=== PATIENT | female | born 1960 | race Caucasian/White ===

== ENCOUNTER → 2023-03-17 13:49 | Outpatient (POV) | payer BC, SELFPAY | PROVIDERS: Visit Provider Specialist/Technologist | DX: Z00.00 Encounter for general adult medical examination without abnormal findings (principal) ==

== ENCOUNTER → 2023-04-08 10:04 | Outpatient (CLI) | payer BC, SELFPAY ==
[2023-04-08 10:52] LABS: Blood Urea Nitrogen 10 mg/dl (7-17); Estimated Glomerular Filt Rate 73 ml/min (>60); GFR (African American) 88 ML/MIN (>60)
--- NOTE | 2023-04-08 15:11 | MR_ITS ---
FINAL REPORT CLINICAL HISTORY: hearing loss OUT OF RIGHT EAR FINDINGS: Multiplanar MR imaging of the brain was performed without and with contrast, with attention to the posterior fossa, cerebellopontine angles and internal auditory canals. There is no evidence of intracranial hemorrhage or mass. The ventricular size is within normal limits. There is no evidence of shift of the midline structures. No area of abnormal restricted diffusion is identified. Normal major vessel vascular flow voids are seen. No abnormal contrast enhancement is identified within the brain. No mass or abnormal contrast enhancement is seen within the cerebellopontine angles or internal auditory canals. No focal abnormality is identified of the temporal bones. 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 IMPRESSION: No acute intracranial abnormality identified. No mass or abnormal contrast enhancement identified within the cerebellopontine angles or internal auditory canals. Reviewed, Interpreted and Dictated by Francisco Collazo III, MD Transcribed by April Salazar Authenticated and [facility]
== END ==
PROVIDERS: PCP Nurse Practitioner Family; Visit Provider Nurse Practitioner
DX: H65.06 Acute serous otitis media, recurrent, bilateral (principal); H68.103 Unspecified obstruction of Eustachian tube, bilateral; H74.03 Tympanosclerosis, bilateral; H93.13 Tinnitus, bilateral
CPT/HCPCS: 36415; 70553; 82565; 84520; A9576

== ENCOUNTER 2023-08-18 13:59 | Outpatient (CLI) | payer BC, SELFPAY ==
--- NOTE | 2023-08-18 14:06 | XR_ITS ---
FINAL REPORT CLINICAL HISTORY: lt knee pain Patient states arthritis, no known injury. weightbearing views. FINDINGS: Left knee Three views were obtained. There is no acute fracture or dislocation. There are mild degenerative changes of the medial and patellofemoral compartments. No soft tissue abnormality is identified. IMPRESSION: Mild degenerative changes. Reviewed, Interpreted and Dictated by Francisco Collazo III, MD Transcribed by Debby Reeder Authenticated and [facility]
== END 2023-08-18 23:59 ==
LOC: RAD 14:01
PROVIDERS: PCP Nurse Practitioner Family; Visit Provider Orthopaedic Surgery
DX: M25.562 Pain in left knee (principal)
CPT/HCPCS: 73562

== ENCOUNTER 2023-08-26 07:50 | Outpatient (CLI) | payer BC, SELFPAY ==
--- NOTE | 2023-08-26 | CA_ITS ---
APPROVED REPORT EXAM: Comprehensive 2D, Doppler, and color-flow Echocardiogram Trimming Machine Operator: Chery Lyles, LAY, RVS Ht: 5 ft 2 in Wt: 162lbs BSA: 1.75 BP: 135/89 mmHg Indications: FAMILY Hx HYPERTROPHIC CM 2D Dimensions Left Atrium 3.48 cm LA Volume 70.00 mL LA Volume Index 39.10 mL/m2 (M/F) 16-34 M-Mode Dimensions RVDd 2.09 cm (0.9-2.6) LA Diam 4.27 cm (1.9-4.0) LVDd 4.78 cm (3.5-5.7) LVDs 3.37 cm (3.5-5.7) IVSd 0.87 cm (0.6-1.1) PWd 0.91 cm (0.6-1.1) EF (Teich) 56.40% EPSs 0.19 cm FS 29.50% EDV (Teich) 106.50 mL TAPSE 1.51 (<1.7) ESV (Teich) 46.40 mL LV Diastology E Decel Time 217 (160-240 msec) E/A Ratio 1.06 MED A' 10.00 cm/s LAT A' 9.30 cm/s Aortic Valve LOAN Index 1.09 cm2/m2 AoV Peak Jori. 133.0 (50-130 cm/s) AO Peak GR. 7.10 mmHg AO Mean GR. 3.60 (<5 mmHg) AO VTI 29.8 (18-25 cm) LOAN (VTI) 1.96 (2.5-4.5 cm2) Mitral Valve MV A Velocity 69.0 (40-130 cm/s) E/A Ratio 1.06 Pulmonary Valve PV Peak Velocity 72.0 (50-150 cm/s) Left Ventricle The left ventricle is normal size. The left ventricular systolic function is normal. The left ventricular ejection fraction is within the normal range. Proximal septal thickening is noted (max LV wall thickness 1.2 cm). No evidence of LVOT obstruction at rest. There is normal LV segmental wall motion. The left ventricular diastolic function is normal. LVEF is 60%. Right Ventricle The right ventricle is normal size. The right ventricular systolic function is normal. Atria The left atrium size is normal. The right atrium size is normal. There is no Doppler evidence of interatrial shunt. The aortic valve is mildly thickened. Aortic Valve There is no aortic valvular stenosis. No aortic regurgitation is present. Mitral Valve The mitral valve is normal in structure. No evidence of systolic anterior motion. No evidence of mitral valve stenosis. Trace mitral regurgitation. Tricuspid Valve The tricuspid valve leaflets are thin and pliable. Trace tricuspid regurgitation. There is insufficient TR jet to estimate RVSP. Pulmonic Valve The pulmonary valve is normal in structure. Trace pulmonic regurgitation. Great Vessels The aortic root is normal in size. The ascending aorta is normal in size. IVC is normal in size and collapses >50% with inspiration. Pericardium There is no pericardial effusion. Other Information Study Quality: Fair Conclusion Normal biventricular systolic function. No significant valvular stenosis or regurgitation. No evidence of systolic anterior motion of the mitral valve. In the setting of known family history of HCM, the study findings are not suggestive of HCM. Electronically signed by : Shelly Antonio MD 08/29/2023 22:11:51
== END 2023-08-26 23:59 ==
LOC: RT 07:50
PROVIDERS: PCP Nurse Practitioner Family; Visit Provider Nurse Practitioner Family
DX: Z82.49 Family history of ischemic heart disease and other diseases of the circulatory system (principal)
CPT/HCPCS: 93306

== ENCOUNTER 2023-10-11 15:41 | Outpatient (POV) | payer BC, SELFPAY | END 2023-10-11 23:59 | disposition home or self-care (01) | LOC: SC 15:42 | PROVIDERS: PCP Nurse Practitioner Family; Visit Provider Dermatology | DX: Z00.00 Encounter for general adult medical examination without abnormal findings (principal) ==

== ENCOUNTER 2023-10-14 07:57 | Outpatient (CLI) | payer BC, SELFPAY ==
--- NOTE | 2023-10-14 08:00 | MM_ITS ---
PROCEDURE INFORMATION: Exam: MG Bilateral Screening 3D Mammography Exam date and time: 10/14/2023 7:52 AM Age: 63 years old Clinical indication: Screening mammogram TECHNIQUE: Imaging protocol: Bilateral Screening tomosynthesis and 2D mammography including computer-aided detection (CAD) when performed. COMPARISON: 1. MG SCREENING JONATHAN MAMMO AND MARIPOSA 05/14/2022 10:31 AM 2. MG MAMMOGRAM SCREENING BILATERAL W OMAR 03/20/2021 7:30 AM FINDINGS: MAMMOGRAPHY: Breast composition: There are scattered areas of fibroglandular density. Mass: Stable benign-appearing subcentimeter nodules are present in the right breast. No new or morphologically suspicious nodule has developed to suggest malignancy. Architectural distortion: No new or suspicious architectural distortion. Calcifications: No new or suspicious calcifications are present Asymmetric density: No new or suspicious asymmetric density is present Skin thickening: None. Axillary adenopathy: None. IMPRESSION: No mammographic evidence of malignancy. Recommend annual screening mammography unless otherwise clinically indicated. ASSESSMENT: BI-RADS category 2: Benign.
== END 2023-10-14 23:59 | disposition home or self-care (01) ==
LOC: RAD 07:57
PROVIDERS: PCP Nurse Practitioner Family; Visit Provider Nurse Practitioner Family
DX: Z12.31 Encounter for screening mammogram for malignant neoplasm of breast (principal)
CPT/HCPCS: 77063; 77067

== ENCOUNTER 2023-10-24 08:57 | Outpatient (CLI) | payer BC, SELFPAY ==
--- NOTE | 2023-10-24 09:10 | XR_ITS ---
FINAL REPORT CLINICAL HISTORY: SCREENING FINDINGS: Using L1-4, the bone mineral density of the spine is 0.873 g/cm2, corresponding to T-score of -1.6. Using the left hip, the bone mineral density of the femoral neck is 0.678 g/cm2, corresponding to a T-score of -1.5. Using the right hip: The bone mineral density of the femoral neck is 0.702 g/cm2, corresponding to a T-score of -1.3. FRAX 10 year fracture risk is 8.3% for a hip fracture and 0.7% for a major osteoporotic fracture. IMPRESSION: Low bone mineral density of the lumbar spine and hips. NOTE: T-score: Standard deviation compared with peak bone mass of young adult mean. *Following the recommendations of the International Society of Bone densitometry, classification of hip BMD is based on the lower of two T-scores; total hip or femoral neck. Reviewed, Interpreted and Dictated by Raheem Sanchez MD Transcribed by Maya Birch Authenticated and . [facility]
== END 2023-10-24 23:59 | disposition home or self-care (01) ==
LOC: RAD 08:58
PROVIDERS: PCP Nurse Practitioner Family; Visit Provider Nurse Practitioner Family
DX: Z78.0 Asymptomatic menopausal state (principal)
CPT/HCPCS: 77080

== ENCOUNTER 2024-08-02 08:04 | Outpatient (CLI) | payer OTHER, SELFPAY ==
[2024-08-02 08:55] LABS: Anion Gap 5.8 mEq/L (5-15); Bilirubin,Total 0.5 mg/dl (0.2-1.3); Blood Urea Nitrogen 14 mg/dl (7-17); Calcium 9.1 mg/dl (8.4-10.2); Carbon Dioxide 28 mmol/L (22.0-30.0); Chloride 108 mmol/L (98-107); Estimated Glomerular Filt Rate 46 ml/min (>60); GFR (African American) 55 ML/MIN (>60); Glucose 106 mg/dl (74-100); Potassium 4.8 mmoL/L (3.5-5.1); Sodium 137 mmol/L (136-145)
[2024-08-02 08:56] LABS: Alanine Aminotransferase 23 U/L (12-78); Albumin Level 3.9 g/dl (3.5-5.0); Albumin/Globulin Ratio 1.9 (1.1-1.8); Alkaline Phosphatase 105 U/L (38-126); Aspartate Amino Transferase 24 U/L (14-36); Chol/HDL Ratio 3.3 (1-3.5); Cholesterol 219 mg/dl (140-200); Globulin 2.1 g/dL (1.3-3.2); HDL Cholesterol 66 mg/dl (40-60); Triglycerides 149 mg/dl (30-150); VLDL Cholesterol 30 mg/dL (0-40)
[2024-08-02 09:05] LABS: Basophils % 0.5 % (0.1-2.0); Eosinophils # 0.1 K/mm3 (0.0-0.4); Eosinophils % 1.2 % (0.1-12.0); Hematocrit 37.7 % (37.0-47.0); Hemoglobin 12.1 g/dL (12.2-16.2); Lymphocytes # 2.5 K/mm3 (0.7-4.5); Lymphocytes % 42.2 % (10-50); Mean Corpuscular HGB Conc 32.1 g/dL (31.8-35.4); Mean Corpuscular Hemoglobin 28.7 pg (27.0-31.2); Mean Corpuscular Volume 89.3 fl (81-99); Mean Platelet Volume 10.6 fl (7.4-10.4); Monocytes # 0.4 K/mm3 (0.1-1.0); Neutrophils # 2.9 K/mm3 (1.8-7.8); Neutrophils % 48.9 % (37.0-80.0); Platelet Count 273 K/mm3 (142-424); Red Blood Count 4.22 M/mm3 (4.20-5.40); Red Cell Distribution Width 14.4 % (11.5-17.5); White Blood Count 5.9 K/mm3 (4.8-10.8)
[2024-08-02 09:06] LABS: Direct LDL Cholesterol 101.26 mg/dL (100-129)
== END 2024-08-02 23:59 | disposition home or self-care (01) ==
LOC: LAB 08:09
PROVIDERS: PCP Nurse Practitioner Family; Visit Provider Nurse Practitioner Family
DX: Z00.00 Encounter for general adult medical examination without abnormal findings (principal); I10 Essential (primary) hypertension
CPT/HCPCS: 36415; 80053; 80061; 85025

== ENCOUNTER 2024-09-06 14:24 | Outpatient (CLI) | payer OTHER, SELFPAY ==
--- NOTE | 2024-09-06 14:27 | XR_ITS ---
FINAL REPORT CLINICAL HISTORY: lt knee pain f/u post knee injection COMPARISON: 08/18/2023 FINDINGS: Three views of the left knee were obtained. There is no acute fracture or dislocation. There is moderate tricompartmental degenerative change, mildly worse since the prior exam. There is no joint effusion. IMPRESSION: Moderate degenerative changes, slightly worse since prior. Reviewed, Interpreted and Dictated by Sary Oneal MD Transcribed by Joann Coleman Authenticated and [facility]
== END 2024-09-06 23:59 | disposition home or self-care (01) ==
LOC: RAD 14:25
PROVIDERS: PCP Nurse Practitioner Family; Visit Provider Physician Assistant
DX: M25.562 Pain in left knee (principal)
CPT/HCPCS: 73562

== ENCOUNTER 2024-10-24 14:26 | Outpatient (CLI) | payer OTHER, SELFPAY ==
--- OUTSIDE RECORDS SUMMARY | 2024-10-24 14:28 | XMS_ITS | Data Portability ---
Author Organization [facility] MIRIAN Pandya MEAD CLOSED Address [address] [place] [address] Assessment No assessment recorded. Plan of Treatment Reminders Order Date Submit Date Provider Last Modified By Organization Details Last Modified Time Details Appointments None record ed. Lab None record ed. Referral None record ed. Procedures None record ed. Surgeries None record ed. Imaging None record ed. Medication Orders None record ed. Patient TargetsNo targets recorded. Patient InstructionsNo instructions recorded. Reason for Referral None Reported. Procedures Surgical History Date Name Laterality Status Provider Name and Address Organization Details Recorded Time 3 Tympanogram completed LEONA MATHEWS, AUD [address] [place], [address], [facility] 05/06/2023 08:49:12 3 Audiogram completed LEONA MATHEWS AUD [address] [place], [address], [facility] 05/06/2023 08:49:11 7 Tonsillectomy completed Caty Coleman [facility] 05/06/2023 08:56:29 Imaging Results None recorded. Procedure Notes None recorded. Medical Equipment None Reported. Allergies No known drug allergies Medications Name Sig Start Date Stop Date Status Note LastModified by Organization Details LastModified Time status covid-19/fl u a&b antigen tst TEST DIRECTED TODAY active Not Available Not Available No t Available valacyclovi r 1 gram tablet active Not Available Not Available Not Available omeprazole 40 mg capsule,del ayed release active Not Available Not Available Not Available citalopram 20 mg tablet active Not Available Not Available Not Available lisinopril 10 mg tablet active Not Available Not Available Not Available montelukast 10 mg tablet active Not Available Not Available Not Available azelastine 137 mcg (0.1 %) nasal spray USE 2 SPRAYS IN EACH NOSTRIL TWICE DAILY 05/06 completed Not Available Not Available Not Available methylpredn isolone 4 mg tablets in a dose pack FOLLOW PACKAGE DIRECTION S active Not Available Not Available No t Available fluticasone propionate 50 mcg/actuati on nasal spray,suspe nsion 05/06 completed Not Available Not Available Not Available amoxicillin 875 mg-potassiu m clavulanate 125 mg tablet 05/06 completed Not Available Not Available Not Available meloxicam active Not Available Not Yue ilable Not Available dicyclomine active Not Available Not A vailable Not Available levocetiriz ine 5 mg tablet TAKE 1 TABLET BY MOUTH DAILY 05/06 completed Not Available Not Available Not Available Vitals None Recorded Social History None recorded. Functional Status Question Answer Note LastModified by Organizat ion Details LastModified Time What is your level of alcohol consumption? Occasional [email or web address] Information not available 05/06/2023 Mental Status None recorded. Family History Relationship Description Onset Age of this Age Resolved Age Notes LastModified by Organization Details LastModified Time Father Hearing loss [email or web address] Not avai lable 05/06/2023 08:55:30 Father Hypertensive disorder [email or web address] Not available 2022 08:55:53 Father Diabetes mellitus [email or web address] Not available 2022 08:56:01 Mother Hearing loss [email or web address] Not avai lable 05/06/2023 08:55:30 Mother Hypertensive disorder [email or web address] Not available 2022 08:55:52 Medical History Condition Response Dizziness N Hearing Loss Y Arthritis Y Head Injury/Concussion N Acid Reflux (GERD) Y Cancer N Stroke N Liver Disease N Kidney Disease N Allergies/Hayfever Y Alzheimer's N Pressure in ears N Diabetes N Noise exposure (guns, equipment etc) N Tinnitus Y Heart Disease N Chronic Ear Infections Y Hypertension Y Gynecological HistoryNo gynecological history recorded. Obstetrics History GPAL:G 0 P 0 0 0 0 Past Encounters Encounter ID Performer Location Encounter Start Date Encounter Closed Date Diagnosis/Indication Diagnosis SNOMED-CT Code Diagnosis ICD10 Code Diagnosis Note [id number] LEONA MATHEWS, [facility]UD [place] [facility] [address] [place] [address] 05/06/2023 08:30:38 05/06/2023 08:57:39 Mixed conductive and sensorineural hearing loss of right ear [id number] 9105 H90.A31 Bilateral tinnitus 38976 11647 102 H93.13 R>L [id number] MD [facility] CHICAS [facility] [address] [place] [id number] 05/06/2023 07:48:32 05/06/2023 10:14:44 Mixed conductive and sensorineural hearing loss of right ear [id number] 9105 H90.A31 Bilateral tinnitus 41749 29588 102 H93.13 R>L Sensorineu ral hearing loss in left ear [id number] 9109 H90.A22 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 1 H74.03 [id number] [facility] [address] [place] [id number] 07/14/2023 10:49:19 07/14/2023 11:38:29 [id number] [facility] [address] [place] [id number] 08/08/2023 09:08:52 08/08/2023 11:08:52 [id number] [facility] [address] [place] [id number] 08/29/2023 12:54:32 08/29/2023 13:38:51 [id number] J[facility]SELIN [facility] [place] [facility] [address] [place] [id number] 09/23/2023 14:49:08 09/23/2023 15:13:53 [id number] [facility]SELIN [facility] [place] [facility] [address] 7 01/19/2024 09:19:19 05/11/2024 14:38:52 [id number] LEONA MATHEWS, AUD [place] [facility] [address] [place] [address] 05/10/2024 09:24:34 05/10/2024 12:16:34 Health Concerns Section Related Observation LastModified by Organization Detai ls LastModified Time None Recorded Concern Status LastModified by Organization Details LastModified Time None Recorded Advance Directives Directive None Recorded Payers Insurance Date Sequence Insurance Name Policy Number Policy Sims Covered Member ID Sims Member ID Guarantor Name 05/07/2024 1 [place] [id number] Ale Garvin [id number] Ale Garvin 05/07/2024 2 [place] ON [place] BEFORE 06/06/2024 - [employer]AN (PPO) [id number] Ale Garvin [id number] Ale Garvin OBGyn Episode No OBEpisode recorded.
--- NOTE | 2024-10-24 14:30 | MM_ITS ---
PROCEDURE INFORMATION: Exam: MG Bilateral Screening 3D Mammography Exam date and time: 10/24/2024 2:58 PM Age: 64 years old Clinical indication: Screening. No family history of breast cancer. TECHNIQUE: Imaging protocol: Bilateral Screening tomosynthesis and 2D mammography including computer-aided detection (CAD) when performed. COMPARISON: 1. MG MM DIG SCREENING MAMM BI W/CAD 10/14/2023 7:52 AM 2. MG SCREENING JONATHAN MAMMO AND MARIPOSA 05/14/2022 10:31 AM 3. MG MAMMOGRAM SCREENING BILATERAL W OMAR 03/20/2021 7:30 AM FINDINGS: MAMMOGRAPHY: Breast composition: There are scattered areas of fibroglandular density. Mass: No suspicious mass. Architectural distortion: None. Calcifications: No suspicious calcifications. Asymmetric density: None. Skin thickening: None. Axillary adenopathy: None. IMPRESSION: No mammographic evidence of malignancy. Annual screening is recommended unless otherwise clinically indicated. ASSESSMENT: BI-RADS Category 1: Negative.
== END 2024-10-24 23:59 | disposition home or self-care (01) ==
LOC: RAD 14:26
PROVIDERS: PCP Nurse Practitioner Family; Visit Provider Nurse Practitioner Family
DX: Z12.31 Encounter for screening mammogram for malignant neoplasm of breast (principal); R92.323 Mammographic fibroglandular density, bilateral breasts
CPT/HCPCS: 77063; 77067

== ENCOUNTER 2025-03-20 08:52 | Outpatient (CLI) | payer OTHER, SELFPAY ==
--- OUTSIDE RECORDS SUMMARY | 2024-09-08 17:30 | XMS_ITS ---
Author Organization [facility] Address [address] [place] [address] Care Team Providers Care Business Performance Analyst Name Role Phone VirgieKarla Primary Care Provider KARLA GARVINSEY Unavailable Unavaila ble Migration, Provider Unavailable Unavailable Allergies Allergen (clinical drug ingredient) Drug/Non Drug Allergy documented on EMR Reaction Allergy Type Onset Date Status metronidazole Metrogel Unknown Drug Allergy Act ki [facility] Conversion Encounter Medications Medication SIG (Take, Route, Frequency, Duration) Notes Start Date End Date Status Lisinopril 20 MG 1 tab(s) orally once a day; Duration: 90 days Active Fluticasone Propionate 50 MCG/ACT 2 sprays in each nostril once a day; Duration: 30 days 02/15/2023 Active Montelukast Sodium 10 MG 1 tab(s) orally once a day; Duration: 30 days Active Omeprazole 40 MG 1 cap(s) orally once a day; Duration: 90 days Active Meloxicam 7.5 MG 1 tab(s) orally once a day; Duration: 30 days prn Active Citalopram Hydrobromide 10 MG 1 tab(s) orally once a day; Duration: 90 days 08/13/2024 Active valACYclovir HCl 1 GM 1 tab(s) orally 2 times a day as directed; Duration: 30 days prn 10/11/2022 Active Dicyclomine HCl 20 MG 1 tab(s) orally 4 times a day as needed for IBS symptoms prn Active Encounters Encounter Location Date Provider Diagnosis [facility] [address] [facility] [address] [place] [address] 09/08/2024 Provider Migration Depression with anxiety F41.8 Assessments Encounter Date Diagnosis (ICD Code) Assessment Notes Treatment Notes Treatment Clinical Notes Section Notes 09/08/2024 Depression with anxiety (ICD-10 - F41.8) Plan Of Treatment Medication Medication Name Sig Start Date Stop Date Notes Citalopram Hydrobromide 10 MG 1 tab(s) o rally once a day; Duration: 90 days 08/13/2024 Next Appt Details Provider Name:Karla Monzon ce, 03/25/2025 08:15:00 AM, [address] [facility], [address], [place], [address], Progress Notes * Thea GARVINaDOB:[birth year] (65 yo F)Acc No.[id number]:09/08/2024 Patient: Ale ROSA Provider: Virginie taylor Migration :1960 A ge:64 Y S ex:Female Date:09/08/2024 Address:[address] [place] [address], [id number] Pcp:Karla Garvin Subjective: * Chief Complaints: * 1 . [facility]. * Medical History: * Medications: T aking Dicyclomine HCl 20 MG Tablet 1 tab(s) orally 4 times a day as needed for IBS symptoms , Notes to Pharmacist: prn, Taking valACYclovir HCl 1 GM Tablet 1 tab(s) orally 2 times a day as directed , Notes to Pharmacist: prn, Taking Meloxicam 7.5 MG Tablet 1 tab(s) orally once a day , Notes to Pharmacist: prn, Taking Omeprazole 40 MG Capsule Delayed Release 1 cap(s) orally once a day , Taking Fluticasone Propionate 50 MCG/ACT Suspension 2 sprays in each nostril once a day , Taking Lisinopril 20 MG Tablet 1 tab(s) orally once a day , Taking Montelukast Sodium 10 MG Tablet 1 tab(s) orally once a day * Allergies: M etrogel: Allergy. Objective: * Vitals: Assessment: * Assessment: 1. D epression with anxiety - F41.8 Plan: * Treatment: * * Electronic signature of Prov ider Migration on 03/20/2025 at 09:07 AM EDT Sign off status: Pending * Provider: Virginie taylor Migration Date: 0 09/08/2024 Generated for Matt castillo/Jacquie/Romansmitting on: 1 09:07 AM EDT
--- OUTSIDE RECORDS SUMMARY | 2025-03-01 07:23 | XMS_ITS ---
Author Organization [facility] Address [address] [place] [address] Care Team Providers Care Senior Health Physics Technician Name Role Phone Virgie Karla Primary Care Provider KARLA GARVIN Unavailable Unavaila ble Encounters Encounter Location Date Provider Diagnosis [facility] [address] [place], [place] [address] 03/01/2025 Karla Virgie HTN (hypertension), benign I10 ; Type 2 diabetes mellitus without complication, without long-term current use of insulin E11.9 ; Chronic kidney disease (CKD), stage 2 N18.2 and Mixed dyslipidemia E78.2 Assessments Encounter Date Diagnosis (ICD Code) Assessment Notes Treatment Notes Treatment Clinical Notes Section Notes 03/01/2025 HTN (hypertension), benign (ICD-10 - I10) 03/01/2025 Type 2 diabetes mellitus without complication, without long-term current use of insulin (ICD-10 - E11.9) 03/01/2025 Chronic kidney disease (CKD), stage 2 (ICD-10 - N18.2) 03/01/2025 Mixed dyslipidemia (ICD-10 - E78.2) Plan Of Treatment Pending Test Test Name Order Date M-Complete Blood Count Auto Diff 025 M-Comprehensive Metabolic Panel 03/01/20 25 M-Hemoglobin A1C 03/01/2025 M-Lipid Panel 03/01/2025 M-Microalb/Creat Ratio, Randm Ur 025 Next Appt Details Provider Name:Karla Monzon ce, 03/25/2025 08:15:00 AM, [address], [address], [place], [address], Progress Notes * Luisito GARVINB:[birth year] (65 yo F)Acc No.[id number]:03/01/2025 Patient: Ale ROSA :1960 A ge:65 Y S ex:Female Address:[address] [place] [address], [place] [address] Subjective: * Chief Complaints: * * Medical History: * Surgical History: * Hospitalization/Major Diagno stic Procedure: * Medications: Objective: * Vitals: * Physical Examination: Assessment: * Assessment: 1. H TN (hypertension), benign - I10 (Primary) 2 . T ype 2 diabetes mellitus without complication, without long-term current use of insulin - E11.9 3 . C hronic kidney disease (CKD), stage 2 - N18.2 4 . M ixed dyslipidemia - E78.2 Plan: * Treatment: 2. T ype 2 diabetes mellitus without complication, without long-term current use of insulin L AB: M-Complete Blood Count Auto Diff L AB: M-Comprehensive Metabolic Panel L AB: M-Hemoglobin A1C L AB: M-Lipid Panel L AB: M-Microalb/Creat Ratio, Randm Ur 3. C hronic kidney disease (CKD), stage 2 L AB: M-Complete Blood Count Auto Diff L AB: M-Comprehensive Metabolic Panel L AB: M-Hemoglobin A1C L AB: M-Lipid Panel L AB: M-Microalb/Creat Ratio, Randm Ur 4. M ixed dyslipidemia L AB: M-Complete Blood Count Auto Diff L AB: M-Comprehensive Metabolic Panel L AB: M-Hemoglobin A1C L AB: M-Lipid Panel L AB: M-Microalb/Creat Ratio, Randm Ur * Procedure Codes: * true * Date: Generated for Printi ng/Faxing/eTransmitting on: 1 09:07 AM EDT
--- OUTSIDE RECORDS SUMMARY | 2025-03-20 09:07 | XMS_ITS | Patient Health Record ---
Author Organization [facility] D [place] Address [address] [place] [address] Care Team Providers Care Drying Oven Attendant Name Role Phone Karla Garvin Primary Care Provider KARLA GARVIN Unavailable Unavaila Karla Talamantes Unavailable [phone] Migration, Provider Unavailable Unavailable Allergies Allergen (clinical drug ingredient) Drug/Non Drug Allergy documented on EMR Reaction Allergy Type Onset Date Status metronidazole Metrogel Unknown Drug Allergy Act ki Results Component Value Reference Range Notes Mammogram : Bilateral Reviewed date:10/31/2024 10:14:03 AM Interpretation: Performing Lab: Notes/Report: TEST AUTHORIZATION Reviewed date:11/21/2024 05:45:23 PM Interpretation: Performing Lab:CB, [facility] [id number] [facility], [facility] [id number] Kirby Brower Notes/Report: NON-FASTING; NON-FASTING; NON-FASTING; NON-FASTING TEST NAME: VITAMIN D,25-OH,TOTAL,IA TEST CODE: [id number] CLIENT CONTACT: JOHNNY GHOSH ALWAYS MESSAGE SIGNATURE The laboratory testing on this patient was verbally requested or confirmed by the ordering physician or his or her authorized patient relations representative after contact with an employee of [employer]. Federal regulations require that we maintain on file written authorization for all laboratory testing. Accordingly we are asking that the ordering physician or his or her authorized patient relations representative sign a copy of this report and promptly return it to the client evaluator. Signature: COMMENT Please fax this signed form to [phone]. Please do not attempt to return this document by other methods. Documents will not be viewed by a patient relations representative. Please do not use this fax number for other service requests. BASIC METABOLIC PANEL (75695 ) Reviewed date:11/16/2024 11:57:34 AM Interpretation: Performing Lab:CB, [facility] [id number] [facility] [[email or web address], Steve GarridoYaxxEQ[address] Kirby Brower Notes/Report: NON-FASTING; NON-FASTING; NON-FASTING; NON-FASTING GLUCOSE 103 65-99 mg/dL Fasting reference interval For someone without known diabetes, a glucose value between 100 and 125 mg/dL is consistent with prediabetes and should be confirmed with a follow-up test. UREA NITROGEN (BUN) 13 7-25 mg/dL CREATININE 0.75 0.50-1.05 mg/dL EGFR 90 > OR = 60 mL/min/1.73m2 BUN/CREATININE RATIO SEE NOTE: 6-22 (calc) Not Reported: BUN and Creatinine are within reference range. SODIUM 139 135-146 mmol/L POTASSIUM 4.7 3.5-5.3 mmol/L CHLORIDE 105 98-110 mmol/L CARBON DIOXIDE 25 20-32 mmol/L CALCIUM 9.3 8.6-10.4 mg/dL M-Complete Blood Count Auto Diff Reviewed date:08/02/2024 01:48:33 PM Interpretation: Performing Lab: Notes/Report: WBC 5.9 4.8-10.8 K/mm3 RBC 4.22 4.20-5.40 M/mm3 HGB 12.1 12.2-16.2 g/dL HCT 37.7 37.0-47.0 % MCV 89.3 81-99 fl MCH 28.7 27.0-31.2 pg MCHC 32.1 31.8-35.4 g/dL RDW 14.4 11.5-17.5 % PLT 273 142-424 K/mm3 MPV 10.6 7.4-10.4 fl NE% 48.9 37.0-80.0 % LY% 42.2 10-50 % MO% 7.0 1.7-9.3 % EO% 1.2 0.1-12.0 % BA% 0.5 0.1-2.0 % NE# 2.9 1.8-7.8 K/mm3 LY# 2.5 0.7-4.5 K/mm3 MO# 0.4 0.1-1.0 K/mm3 EO# 0.1 0.0-0.4 K/mm3 BA# 0.0 0-0.2 K/mm3 M-Comprehensive Metabolic Pa nirlai Reviewed date:08/02/2024 01:48:33 PM Interpretation: Performing Lab: Notes/Report: NA 137 136-145 mmol/L K 4.8 3.5-5.1 mmoL/L CL 108 98-107 mmol/L CO2 28 22.0-30.0 mmol/L GAP 5.8 5-15 mEq/L BUN 14 7-17 mg/dl CREATT 1.20 0.52-1.04 mg/dl GFRAA 55 >60 ML/MIN EGFR 46 >60 ml/min GLU 106 74-100 mg/dl CA 9.1 8.4-10.2 mg/dl BILIT 0.5 0.2-1.3 mg/dl AST 24 14-36 U/L ALT 23 12-78 U/L TP 6.0 6.3-8.2 g/dl ALB 3.9 3.5-5.0 g/dl GLOB 2.1 1.3-3.2 g/dL AGRATIO 1.9 1.1-1.8 ALP 105 38-126 U/L M-Lipid Panel Reviewed date:08/02/2024 01:48:33 PM Interpretation: Performing Lab: Notes/Report: Patient Fasting? Y TRIG 149 30-150 mg/dl CHOL 219 140-200 mg/dl DLDL 101.26 100-129 mg/dL VLDL 30 0-40 mg/dL HDL 66 40-60 mg/dl CHLHDL 3.3 1-3.5 HEMOGLOBIN A1c (496) Reviewed date:11/16/2024 11:57:35 AM Interpretation: Performing Lab:CB, [facility] [id number], Steve GarridoPmshOF[address] Kirby Brower Notes/Report: NON-FASTING; NON-FASTING; NON-FASTING; NON-FASTING HEMOGLOBIN A1c 6.6 <5.7 % For someone without known diabetes, a hemoglobin A1c value of 6.5% or greater indicates that they may have diabetes and this should be confirmed with a follow-up test. For someone with known diabetes, a value <7% indicates that their diabetes is well controlled and a value greater than or equal to 7% indicates suboptimal control. A1c targets should be individualized based on duration of diabetes, age, comorbid conditions, and other considerations. Currently, no consensus exists regarding use of hemoglobin A1c for diagnosis of diabetes for children. TSH W/REFLEX TO FT4 (97156) Reviewed date:11/16/2024 11:57:35 AM Interpretation: Performing Lab:[facility] [employer], [employer]ductorStgdHG[address] Kirby Brower Notes/Report: NON-FASTING; NON-FASTING; NON-FASTING; NON-FASTING TSH W/REFLEX TO FT4 0.88 0.40-4.50 mIU/L VITAMIN D,25-OH,TOTAL,IA (17 306) Reviewed date:11/22/2024 01:22:29 PM Interpretation: Performing Lab:[facility] [employer] [place], SajanMsgeTS[address] Kirby Brower Notes/Report: NON-FASTING; NON-FASTING; NON-FASTING; NON-FASTING VITAMIN D,25-OH,TOTAL,IA 31 30-100 ng/mL Vitamin D Status 25-OH Vitamin D: Deficiency: <20 ng/mL Insufficiency: 20 - 29 ng/mL Optimal: > or = 30 ng/mL For 25-OH Vitamin D testing on patients on D2-supplementation and patients for whom quantitation of D2 and D3 fractions is required, the QuestAssureD(TM) 25-OH VIT D, (D2,D3), LC/MS/MS is recommended: order code 23920 (patients >2yrs). See Note 1 Note 1 For additional information, please refer to http://education.Cityzenith/faq/UHQ343 (This link is being provided for informational/ educational purposes only.) Reason For Referral No Information Medications Medication SIG (Take, Route, Frequency, Duration) Notes Start Date End Date Status Flonase Allergy Relief 50 MCG/ACT 1 spray in each nostril Nasally Twice a day; Duration: 30 days 12/10/2024 Active Cetirizine HCl 10 MG 1 tablet Orally at bedtime; Duration: 30 days 12/10/2024 Active Dicyclomine HCl 20 MG 1 tab(s) orally 4 times a day as needed for IBS symptoms prn Active valACYclovir HCl 1 GM 1 tab(s) orally 2 times a day as directed; Duration: 30 days prn 10/11/2022 Active Meloxicam 7.5 MG 1 tab(s) orally once a day; Duration: 30 days prn Active Fluticasone Propionate 50 MCG/ACT 2 sprays in each nostril once a day; Duration: 30 days 02/15/2023 Active Lisinopril 20 MG 1 tab(s) orally once a day; Duration: 90 days Active Montelukast Sodium 10 MG 1 tab(s) orally once a day; Duration: 90 days Active Omeprazole 40 MG 1 cap(s) orally once a day; Duration: 90 days Active Immunizations Vaccine Route Administration Date Status Comme nts Flublok IM Intramuscular 02/27/2024 Administered Boostrix IM Intramuscular 12/23/2022 Administered Social History Tobacco Use: Social History Observation Description Date Details (start date - stop date) Never Smoker NA - NA Smoking: Question Answer Notes Are you a: nonsmoker Problems Problem Type SNOMED Code ICD Code Onset Dates Problem Status W/U Status Risk Notes Problem Overweight (322115710) Overweight (E66.3) Active confirmed Problem Pain of left knee joint (finding) (170924614095735) Pain in left knee (M25.562) Active confirmed Problem Mixed anxiety and depressive disorder (717314254) Depression with anxiety (F41.8) Active confirmed Problem Essential hypertension (22155185) HTN (hypertension), benign (I10) Active confirmed Problem Body mass index 30.00 to 34.99 (674646648320317) BMI 31.0-31.9,adult (Z68.31) Active confirmed Problem Chronic pain (53414090) Other chronic pain (G89.29) Active confirmed Problem Fever blister (8677815) Fever blister (B00.1) Active confirmed Problem Gastroesophageal reflux disease (disorder) (905367813) Chronic GERD (K21.9) Active confirmed Problem Type II diabetes mellitus without complication (710152111) Type 2 diabetes mellitus without complication, without long-term current use of insulin (E11.9) Active confirmed Problem Hearing loss (25673407) Bilateral hearing loss, unspecified hearing loss type (H91.93) Active confirmed Problem Seasonal allergic rhinitis (150564799) Acute seasonal allergic rhinitis (J30.2) Active confirmed Problem Mixed hyperlipidemia (785944915) Mixed dyslipidemia (E78.2) Active confirmed Problem Allergic rhinitis (04037800) Non-seasonal allergic rhinitis, unspecified trigger (J30.89) Active confirmed Problem Family history of ischemic heart disease (116185896) Family history of hypertrophic cardiomyopathy (Z82.49) Active confirmed Problem History of colitis (069666528) History of colitis (Z87.19) Active confirmed Problem Chronic kidney disease stage 2 (451495534) Chronic kidney disease (CKD), stage 2 (N18.2) Active confirmed Vital Signs Heart Rate 72 /min 12/10/2024 Temperature 97.9 degrees Fahrenheit 12/10/2024 Blood pressure diastolic 78 mm Hg 12/10/2024 Height 5ft 2in in 12/10/2024 Blood pressure systolic 110 mm Hg 12/10/2024 Weight 161 lbs 12/10/2024 BMI 29.44 kg/m2 12/10/2024 Encounters Encounter Location Date Provider Diagnosis [facility] [address] [facility] [address] [place] [address] 09/08/2024 Provider Migration Depression with anxiety F41.8 [place] [facility] [address] [place] [facility] [address] [place] [address] 08/13/2024 Karla Garvin Routine medical exam Z00.00 ; HTN (hypertension), benign I10 ; Depression with anxiety F41.8 ; History of colitis Z87.19 ; Other chronic pain G89.29 ; Chronic GERD K21.9 ; Non-seasonal allergic rhinitis, unspecified trigger J30.89 ; Family history of hypertrophic cardiomyopathy Z82.49 ; Mixed dyslipidemia E78.2 ; BMI 31.0-31.9,adult Z68.31 ; IFG (impaired fasting glucose) R73.01 ; Weight gain R63.5 ; Other specified disorders of bone density and structure, unspecified site M85.80 ; Asymptomatic menopausal state Z78.0 and Elevated serum creatinine R79.89 [place] [facility] [address] [address] 11/21/2024 Karlaleón FriedmanVirgie HTN (hypertension), benign I10 ; Type 2 diabetes mellitus without complication, without long-term current use of insulin E11.9 ; Depression with anxiety F41.8 ; Other chronic pain G89.29 ; Chronic GERD K21.9 ; Chronic kidney disease (CKD), stage 2 N18.2 and Pulsatile tinnitus H93.A9 [facility] [address] [facility] [address] [place] [address] 12/10/2024 Karla Carr Right acute serous otitis media, recurrence not specified H65.01 [place] [facility] [address] [address] 06/18/2024 Karla Garvin Acute seasonal allergic rhinitis J30.2 [facility] [address] [address] 06/19/2024 Karla Friedmanence [facility] [address] [facility] [address] [place] [address] 07/10/2024 Karlaleón FriedmanVirgie HTN (hypertension), benign I10 and Routine medical exam Z00.00 [facility] [address] [address] 09/14/2024 Karla Friedmanence [facility] [address] [facility] [address] [place] [address] 10/17/2024 Karla Friedmanence Breast cancer screening by mammogram Z12.31 [place] [facility] [address] [facility] [address] [place] [address] 11/05/2024 Karla Friedmanence Elevated serum creatinine R79.89 ; Weight gain R63.5 ; IFG (impaired fasting glucose) R73.01 and Other specified disorders of bone density and structure, other site M85.88 [facility] [address] [facility] [address] [place] [address] 03/01/2025 Karlaleón FriedmanVirgie HTN (hypertension), benign I10 ; Type 2 diabetes mellitus without complication, without long-term current use of insulin E11.9 ; Chronic kidney disease (CKD), stage 2 N18.2 and Mixed dyslipidemia E78.2 Assessments Encounter Date Diagnosis (ICD Code) Assessment Notes Treatment Notes Treatment Clinical Notes Section Notes 06/18/2024 Acute seasonal allergic rhinitis (ICD-10 - J30.2) 07/10/2024 Routine medical exam (ICD-10 - Z00.00) 07/10/2024 HTN (hypertension), benign (ICD-10 - I10) 08/13/2024 Routine medical exam (ICD-10 - Z00.00) Wellness updated as noted, labs reviewed. 08/13/2024 HTN (hypertension), benign (ICD-10 - I10) elevated today, encouraged to monitor at home, goal < 130/80, she will let me know if home readings are elevated as well 10/17/2024 Breast cancer screening by mammogram (ICD-10 - Z12.31) 11/05/2024 Weight gain (ICD-10 - R63.5) 11/05/2024 Elevated serum creatinine (ICD-10 - R79.89) 11/21/2024 HTN (hypertension), benign (ICD-10 - I10) well controlled, continue weight loss efforts 11/21/2024 Type 2 diabetes mellitus without complication, without long-term current use of insulin (ICD-10 - E11.9) Learning About Type 2 Diabetes material was published, Hemoglobin A1c: About This Test material was published Long discussion about diagnosis and importance of CC diet and regular monitoring. 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 12/10/2024 Right acute serous otitis media, recurrence not specified (ICD-10 - H65.01) No active infection. Flonase bid x 7 days then once daily, continue antihistamine. Follow-up if develops fever, pain, hearing loss, worsening symptoms, or no improvement in a week. 03/01/2025 HTN (hypertension), benign (ICD-10 - I10) 03/01/2025 Type 2 diabetes mellitus without complication, without long-term current use of insulin (ICD-10 - E11.9) 03/01/2025 Chronic kidney disease (CKD), stage 2 (ICD-10 - N18.2) 11/05/2024 IFG (impaired fasting glucose) (ICD-10 - R73.01) 11/21/2024 Depression with anxiety (ICD-10 - F41.8) rec resume low dose citalopram to see if this helps with her myriad of other symptoms 09/08/2024 Depression with anxiety (ICD-10 - F41.8) 08/13/2024 Depression with anxiety (ICD-10 - F41.8) doing well at this point without citalopram but discussed having lower dose on hand in case she were to feel the need to resume 11/05/2024 Other specified disorders of bone density and structure, other site (ICD-10 - M85.88) 08/13/2024 History of colitis (ICD-10 - Z87.19) continue FU with GI 11/21/2024 Other chronic pain (ICD-10 - G89.29) continue avoid NSAIDS, other pain relieving modalities reviewed 03/01/2025 Mixed dyslipidemia (ICD-10 - E78.2) 11/21/2024 Chronic GERD (ICD-10 - K21.9) continue PPI for now, discussed very gradual weaning in the future if considering stopping therapy 08/13/2024 Other chronic pain (ICD-10 - G89.29) 08/13/2024 Chronic GERD (ICD-10 - K21.9) continue PPI for now, discussed very gradual weaning in the future if considering stopping therapy 11/21/2024 Chronic kidney disease (CKD), stage 2 (ICD-10 - N18.2) monitor, urine microalbumin next visit 11/21/2024 Pulsatile tinnitus (ICD-10 - H93.A9) Discussed that this can sometimes be simply another form of tinnitus and associated with her hearing loss, she will monitor and if this becomes more intense or frequent we will consider brain imaging to rule out any underlying pathology otherwise 08/13/2024 Non-seasonal allergic rhinitis, unspecified trigger (ICD-10 - J30.89) 08/13/2024 Family history of hypertrophic cardiomyopathy (ICD-10 - Z82.49) EKG/Echo last year normal, repeat 202808/13/2024 Mixed dyslipidemia (ICD-10 - E78.2) improved this year 08/13/2024 BMI 31.0-31.9,adult (ICD-10 - Z68.31) complicates all aspects of care, reviewed importance of increasing physical activity 08/13/2024 IFG (impaired fasting glucose) (ICD-10 - R73.01) 08/13/2024 Weight gain (ICD-10 - R63.5) 08/13/2024 Other specified disorders of bone density and structure, unspecified site (ICD-10 - M85.80) 08/13/2024 Asymptomatic menopausal state (ICD-10 - Z78.0) 08/13/2024 Elevated serum creatinine (ICD-10 - R79.89) elevated on labs this year...recommen d better water intake, limit NSAIDS, repeat in 3-6 months for comparison 08/13/2024 Other Plan Of Treatment Pending Test Test Name Order Date Echocardiogram 08/11/2023 EKG 08/11/2023 M-Complete Blood Count Auto Diff 025 M-Comprehensive Metabolic Panel 03/01/20 M-Hemoglobin A1C 03/01/2025 M-Lipid Panel 03/01/2025 M-Microalb/Creat Ratio, Randm Ur 025 LIPID PANEL, STANDARD (7600) 07/10/2024 COMPREHENSIVE METABOLIC PANEL (34557) CBC (INCLUDES DIFF/PLT) (6399) Future Test Test Name Order Date M-Basic Metabolic Panel 11/04/2024 M-Hemoglobin A1C 11/04/2024 M-Free T4 (Free Thyroxine) 11/04/2024 M-Thyroid Stimulating Hormone 11/04/2024 M-Vitamin D 25 Hydroxy 11/04/2024 Next Appt Details Provider Name:Karla De Oliveira Na , 03/25/2025 08:15:00 AM, [address] [place] [address] [facility], [address], [place], [address], Insurance Providers Payer Name Payer Address Payer Phone Subscriber Number Group Number Insured Name Patient Relationship to Insured Coverage Start Date Coverage End Date [employer] P Mick [address]GRATH [id number] [place] [address] [id number] Ale Garvin Self - patient is the insured Medical (General) History Medical History History ICD Code hypertension since fall 2021 acid reflux, managed with PPI daily seasonal allergies hypoglycemic Arthritis Microscopic colitis - treated with budes onide around 2019 Anxiety treated with citalopram since 2010 Patient has hearing aids LT Torn Meniscus 2020 Type 2 DM, A1C 6.6 in November 2024
[2025-03-20 09:38] LABS: Hematocrit 39.3 % (37.0-47.0); Hemoglobin 12.5 g/dL (12.2-16.2); Immature Granulocytes % 0.3 %; Mean Corpuscular HGB Conc 31.8 g/dL (31.8-35.4); Mean Corpuscular Hemoglobin 28.0 pg (27.0-31.2); Mean Corpuscular Volume 88.1 fl (81-99); Nucleated Red Blood Cells % 0 %; Platelet Count 291 K/mm3 (142-424); Red Blood Count 4.46 M/mm3 (4.20-5.40); Red Cell Distribution Width-SD 46.7 fL; White Blood Count 7.6 K/mm3 (4.8-10.8)
[2025-03-20 10:20] LABS: Albumin Level 3.8 g/dl (3.5-5.0); Chloride 103 mmol/L (98-107); Potassium 4.7 mmoL/L (3.5-5.1); Sodium 138 mmol/L (136-145)
[2025-03-20 10:22] LABS: Blood Urea Nitrogen 11 mg/dl (7-17); Creatinine,Serum 0.70 mg/dl (0.52-1.04); Estimated Glomerular Filt Rate 85 ml/min (>60); GFR (African American) 102 ML/MIN (>60)
[2025-03-20 10:23] LABS: Alanine Aminotransferase 25 U/L (12-78); Albumin/Globulin Ratio 1.5 (1.1-1.8); Alkaline Phosphatase 101 U/L (38-126); Anion Gap 10.7 mEq/L (5-15); Aspartate Amino Transferase 27 U/L (14-36); Bilirubin,Total 0.4 mg/dl (0.2-1.3); Calcium 8.8 mg/dl (8.4-10.2); Carbon Dioxide 29 mmol/L (22.0-30.0); Cholesterol 239 mg/dl (140-200); Globulin 2.5 g/dL (1.3-3.2); Glucose 107 mg/dl (74-100); HDL Cholesterol 68 mg/dl (40-60); Total Protein,Serum 6.3 g/dl (6.3-8.2); Triglycerides 152 mg/dl (30-150)
[2025-03-20 11:48] LABS: Hemoglobin A1C 6.3 % (4.0-6.0)
== END 2025-03-20 23:59 | disposition home or self-care (01) ==
LOC: LAB 08:52
PROVIDERS: PCP Nurse Practitioner Family; Visit Provider Nurse Practitioner Family
DX: E78.2 Mixed hyperlipidemia (principal); I12.9 Hypertensive chronic kidney disease with stage 1 through stage 4 chronic kidney disease, or unspecified chronic kidney disease; N18.2 Chronic kidney disease, stage 2 (mild); E11.9 Type 2 diabetes mellitus without complications
CPT/HCPCS: 36415; 80053; 80061; 82043; 82570; 83036; 85025